=== PATIENT | male | born 1970 | race Hispanic/Latino ===

== ENCOUNTER 2016-11-30 23:14 | Inpatient (IN) | payer SELFPAY ==
[~2016-11-30] VITALS: Ht 170.2 cm; Wt 56.4 kg
[~2016-11-30 23:14] MED LIST: AMLO5TAB2 PO; ATOR10TA66 PO; CEPH-512 PO; FLUO10CA20 PO; GLPZ5T PO; METF500T4 PO; METO25TA6 PO; METR500T PO
[2016-11-30 23:22] VITALS: BP 176/100; PULSE 115; RESP 36; O2SAT 99
[2016-11-30] MEDS ORDERED: Ondansetron 2 mg/mL 2 mL Inj ONE (23:28)
[2016-11-30] MEDS ORDERED: 0.9% Sodium Chloride 1,000 ML IV ONE (23:35)
[2016-11-30] MEDS: Ondansetron 2 mg/mL 2 mL Inj IVPUSH PRN (23:38)
--- NOTE | 2016-11-30 23:41 | ED.REPORT ---
HPI-General Illness Date of Service Nov 30, 2016 ED Provider: Etienne Kaba MD Pt is a 46 year old male with a hx of DM and HTN presenting to the ED complaining of abdominal pain onset yesterday. Associated symptoms include nausea and vomiting today, confusion, and throat pain. Denies diarrhea or any other symptoms at this time. He reports that he does smoke marijuana but denies smoking any today. Nursing Notes Stated Complaint: POSSIBLE HIGH BLOOD SUGAR,VOMITING Chief Complaint: General Complaint Nursing Notes Reviewed: Yes Allergies: Coded Allergies: No Known Allergies (Verified Allergy, Unknown, 09/27/16) Uncoded Allergies: seasonal allergies (Adverse Reaction, Intermediate, itchy, rash, 09/27/16) Scheduled Amlodipine (Amlodipine) 5 Mg Tablet 10 MG PO DAILY Atorvastatin Calcium (Atorvastatin Calcium) 10 Mg Tablet 10 MG PO HS Cephalexin (Keflex) 500 Mg Capsule 500 MG PO BID Fluoxetine (Fluoxetine) 10 Mg Capsule 10 MG PO DAILY Glipizide (Glipizide) 5 Mg Tablet 5 MG PO DAILY Metformin (Metformin) 500 Mg Tablet 500 MG PO DAILY Metformin (Metformin) 500 Mg Tablet 500 MG PO BID Metoprolol Tartrate (Metoprolol Tartrate) 25 Mg Tablet 12.5 MG PO BID Metronidazole (Flagyl) 500 Mg Tablet 500 MG PO Q8H General Time Seen by MD: 23:35 Chief Complaint Abdominal pain Hx Obtained From: Patient Arrived By: Walk-in Sudden in Onset?: No Onset Occurred: Yesterday Symptom Duration: Since onset Location: : Abdomen Quality: Painful Severity: Current: Moderate Severity: Maximum: Severe Recent Healthcare: No recent doctor visit, No recent hospitalization Similar Sx Previous: No Past Medical History Past Medical History Type 2 diabetes - diagnosed in April the emergency department, patient never followed up with his provider. Reports: Depression Past Surgical History none reported Smoking History Current Every Day Smoker Social History Alcohol Use: Denies alcohol use Drug Use: THC Other Social History: Good social support, , Local resident Ambulatory Status Independent Review of Systems Full Review of Systems Ears / Nose / Throat: Reports: Throat pain GI: Reports: Abdominal pain, Nausea, Vomiting, Denies: Diarrhea Neurologic: Reports: Confusion Complete sys rev & neg: except as marked. Physical Exam Vital Signs Vital Signs Date Time Temp Pulse Resp B/P Pulse Ox O2 Delivery O2 Flow Rate FiO2 12/01/16 02:59 81 28 165/65 97 Room Air 12/01/16 01:35 78 27 170/78 98 Room Air 11/30/16 23:22 35.8 115 36 176/100 99 Room Air Initial VS: Reviewed, Vital signs abnormal General/Constitutional: Well-developed, Well-nourished Head / Eyes: Atraumatic, Normocephalic, PERRL ENT: Mucous membranes moist, Conjunctiva normal, No scleral icterus Neck: Supple, Non-tender, Full range of motion Respiratory: Breath sounds normal, Clear to auscultation, No respiratory distress Cardiovascular: Regular rate & rhythm, Heart sounds normal, Intact distal pulses Abdomen / GI: Soft, Non-tender, No guarding, No rebound, No distention Extremities: Vascular intact, Neuro intact, No swelling, No tenderness Skin: Warm, Dry, No cyanosis Neurologic: Alert, Oriented, Nonfocal Psychiatric: Mood/affect normal, Behavior normal, Normal thought content Interpretation & Diagnostics Interpretation & Diagnostics: Urine Tox positive for marijuana Lab Results Interpretation Result Diagram: 11/30/16 2340 11/30/16 2340 Test 11/30/16 23:40 12/01/16 00:59 12/01/16 01:29 White Blood Count 21.0th/mm3 (3.8-10.1) Red Blood Count 6.67mil/mm3 (4.40-5.80) Hemoglobin 19.1g/dL (13.8-17.2) Hematocrit 53.2% (41.0-50.0) Mean Corpuscular Volume 79.8fL (81-100) Mean Corpuscular Hemoglobin 28.6pg (27.0-35.0) Mean Corpuscular Hemoglobin Concent 35.9% (32.0-37.0) Red Cell Distribution Width 13.9% (12.3-15.4) Platelet Count 351bil/L (150-400) Neutrophils (%) (Auto) 83.5% (40-74) Lymphocytes (%) (Auto) 9.2% (14-46) Monocytes (%) (Auto) 6.5% (4-12) Eosinophils (%) (Auto) 0.1% (0-5) Basophils (%) (Auto) 0.2% (0-3) Sodium Level 139mEq/L (134-144) Potassium Level 3.5mEq/L (3.5-5.2) Chloride Level 89mEq/L (97-108) Carbon Dioxide Level 17mmol/L (18-29) Blood Urea Nitrogen 46mg/dL (6-24) Creatinine 2.22mg/dL (0.76-1.27) Estimat Glomerular Filtration Rate 34mL/min (>59) Glucose Level 299mg/dL (60-99) Calcium Level 12.6mg/dL (8.5-10.1) Phosphorus Level 5.4mg/dL (2.5-4.9) Magnesium Level 2.2mg/dL (1.6-2.6) Total Bilirubin 0.5mg/dL (0.0-1.2) Aspartate Amino Transf (AST/SGOT) 24U/L (0-50) Alanine Aminotransferase (ALT/SGPT) 28U/L (0-44) Alkaline Phosphatase 135U/L (25-150) Troponin T 0.010ug/L (0.0-0.011) Total Protein 10.4g/dL (6.4-8.4) Albumin 7.1g/dL (3.4-5.0) Lipase 71U/L (13-60) Procalcitonin 0.21ng/mL (0.00-0.08) Hold Richard Top Tube Received (Received) Hold Urine Received (Received) Urine Color Yellow (YELLOW) Urine Appearance Hazy (CLEAR,HAZY) Urine pH 6.5 (5.0-8.0) Urine Specific [place] 1.019 (1.003-1.035) Urine Protein 100mg/dL (NEG,TRACE) Urine Glucose (UA) 500mg/dL (NEGATIVE) Urine Ketones 80mg/dL (NEGATIVE) Urine Occult Blood Trace (NEGATIVE) Urine Nitrite Negative (NEGATIVE) Urine Bilirubin Negative (NEGATIVE) Urine Urobilinogen Normalmg/dL (NORMAL) Urine Leukocyte Esterase Negative (NEGATIVE) Urine RBC 0-2/hpf (0-2) Urine WBC 0-5/hpf (0-5) Urine Epithelial Cells Occasional/hpf (NONE-MOD) Urine Crystals None seen (NONE SEEN) Urine Bacteria Few/hpf (NONE-FEW) Urine Hyaline Casts Occasional/lpf (NONE) Urine Granular Casts None seen (NONE SEEN) Urine Waxy Casts None seen (NONE SEEN) Urine Red Blood Cell Casts None seen (NONE SEEN) Urine White Blood Cell Casts None seen (NONE SEEN) Urine Mucus Present (None Seen) Urine Trichomonas None seen (NONE SEEN) Urine Yeast None (NONE SEEN) Urinalysis Comment None Urine Culture Reflexed Not indicated Lab Results Interpretation: Elevated white blood count, elevated blood sugar, elevated BUN/creatinine X-Ray Chest Interpretation Chest Xray Interpretation: Normal. View: Portable, 1 view Interpretation / Wet Read by: Wet read ED physician CT Head Interpretation CONCLUSION: No acute intracranial findings. This report was transmitted to the emergency room at 12/01/2016 - 2:51:06 AM PDT. Study: Head CT no contrast Interpretation / Wet Read by: Interpret - Radiologist CT Abd / Pelvis Interpretation CONCLUSION: 1. Negative for obstructive uropathy. 2. Normal appendix. No free air, bowel obstruction, or mesenteric inflammation. This report was transmitted to the emergency room at 12/01/2016 - 3:04:30 AM PDT Study type: Abdominal CT no contrast Interpretation / Wet Read by: Interpret - Radiologist Re-Eval/Medical Decision Med Decision/Clinical Course 46-year-old male with diabetes presents with fever and vomiting and mild confusion. He is a daily marijuana smoker, and it is unclear whether cannabis hyperemesis is a consideration here. He does have evidence of sepsis with elevated white blood count, elevated lactic acid, but no source is found. CT scan of the head done because of confusion was normal. CT scan of the abdomen done without contrast does not reveal any source of his current symptoms. He will be admitted to the hospitalist service for further evaluation and treatment. Please see inpatient chart for details. Time of Eval: 03:00 Patient Status: Condition improved Re-Evaluation/Progress Note: Discussed plan for admission. Pt understands and agrees. Consultation : Referral / Consult Name: Gonzlao Pinedo MD Consulted With: Hospitalist Call Returned at: 03:52 Development Professional: Will see patient, Agrees with plan, Accepts admit Counseled Regarding: Diagnosis, Lab results, Need for admission Discharge & Departure Primary Impression: Sepsis Sepsis type: sepsis due to unspecified organism Qualified Code: A41.9 - Sepsis, unspecified organism Disposition: ADMITTED TO HOSPITAL Discharge Condition All VS Reviewed: Yes Condition: Improved Referrals: [facility] Scribe Attestation Portions of this note were transcribed by Marie Nunes. IDr. Kaba personally performed the history, physical exam and medical decision-making; I reviewed and confirmed the accuracy of the information in the transcribed note. Signed by: Mayo Mckenzie, 11/30/2016 at 0355. copies to: [facility] Etienne Kaba MD Nov 30, 2016 23:41 MARIE NUNES Nov 30, 2016 23:42
[2016-11-30 23:54] LABS: Mean Corpuscular Hemoglobin 28.6 pg (27.0-35.0); Mean Corpuscular Volume 79.8 fL (81-100)
[2016-11-30 23:55] LABS: BASOPHILS % (AUTO) 0.2 % (0-3); EOSINOPHILS % (AUTO) 0.1 % (0-5); MONOCYTES % (AUTO) 6.5 % (4-12); NEUTROPHILS % (AUTO) 83.5 % (40-74); Platelet Count 351 bil/L (150-400)
[2016-12-01] VITALS (13 sets, daily range): BP systolic 130–178; BP diastolic 54–78; PULSE 63–81; RESP 16–28; O2SAT 95–98
[2016-12-01] MEDS: Ondansetron 2 mg/mL 2 mL Inj IVPUSH PRN (00:20)
[2016-12-01 00:28] LABS: Magnesium 2.2 mg/dL (1.6-2.6)
[2016-12-01] MEDS ORDERED: 0.9% Sodium Chloride 1,000 ML IV ONE (00:30)
[2016-12-01 02:01] LABS: APPEARANCE,URINE HAZY (CLEAR,HAZY); COLOR,URINE YELLOW (YELLOW); OCCULT BLOOD,URINE TRACE (NEGATIVE); PH,URINE 6.5 (5.0-8.0); UROBILINOGEN,URINE NORMAL (NORMAL)
[2016-12-01] MEDS ORDERED: ProchlorPERazine 5 mg/mL 2 mL Inj IVPUSH ONE (02:15)
[2016-12-01] MEDS ORDERED: Pantoprazole 4 mg/mL 10 mL Inj IVPUSH ONE (03:25)
[2016-12-01] MEDS ORDERED: 0.9% Sodium Chloride 1,000 ML IV SCH (03:56)
[2016-12-01] MEDS ORDERED: Ondansetron 2 mg/mL 2 mL Inj IVPUSH PRN (04:00)
[2016-12-01] MEDS ORDERED: Glucose 40% Oral Gel 15 Gm Tube PO PRN (04:00)
[2016-12-01] MEDS ORDERED: Alum-Mag Hydrox-Simeth 30 mL Suspension PO PRN (04:00)
[2016-12-01] MEDS ORDERED: Polyethylene Glycol (PEG) 17 Gm Powder PO PRN (04:00)
[2016-12-01] MEDS ORDERED: Piperacillin-Tazo 3.375 Gm Inj 3.375 GM in Dextrose 5% Minibag Plus 50 ML IV ONE (04:05)
--- NOTE | 2016-12-01 04:38 | PCM.HPMED ---
Subjective Date of Service Dec 01, 2016 Primary Provider: Admitting Physician: Gonzalo Pinedo MD Primary Care Physician: Nopcp Attending Physician: Gonzalo Pinedo MD Admit Status: From the Emergency Department, Full Admit, [facility] Telemetry Chief Complaint: Abdominal pain History of Present Illness: Simone Sal is a 46 year old male with Diabetes and Hypertension presenting to [facility] emergency department complaining of abdominal pain onset yesterday. Pain started yesterday after eating breakfast. Located in the epigastric region , sharp without any radiation, 7/10 intensity. Associated symptoms include nausea and vomiting with throat pain. Denies diarrhea or fever or chills. He reports that he does smoke marijuana but denies smoking any today. He is diabetic and Hypertension but does not recall his medication list. Patient diagnosed with Diabetes last year Case discussed with Dr Kaba, source of infection unclear with Urine and chest x ray unremarkable. Labs and vitals consistent with Sepsis and CT scan showed no source but was done without any contrast. Review of Systems: Pertinent positives as noted in HPI. All other systems were reviewed and are negative Allergies Coded Allergies: No Known Allergies (Verified Allergy, Unknown, 09/27/16) Uncoded Allergies: seasonal allergies (Adverse Reaction, Intermediate, itchy, rash, 09/27/16) Home Medications Patient cannot recall medication list. Needs to be consolidated PMH Diabetes type 2 Hypertension Nicotine dependence . Surgical History None reported Family History Father of head and neck cancer at age 65. Mother of diabetic complications at age 66. Social History Hx Alcohol Use: No Hx Substance Use: Yes (marijuana 3x/week) Hx Tobacco Use: Yes Smoking Status: Current Every Day Smoker Living Arrangement: with Family Exam Vital Signs Vital Sign - Last Date Time Temp Pulse Resp B/P Pulse Ox O2 Delivery O2 Flow Rate FiO2 12/01/16 02:59 81 28 165/65 97 Room Air 11/30/16 23:22 35.8 Exam General: Alert, Oriented X3, Cooperative, No acute Distress Eyes: PERRLA, Scleral Anicteric Mouth: Mouth Normal, Mucous Membranes dry Neck: Supple, no Thyromegaly, trachea central. Chest & Lungs: Clear to auscultation & percussion, No adventitious breath sounds, no crackles, no wheeze Cardiovascular: Normal S1, Normal S2, No Murmurs/Rubs/Gallops, Regular Rate/ Rhythm (No JVD, no peripheral edema) Pulses: Radial (present and equal), Dorsalis Pedi (present and equal) Abdomen: Soft, Non-tender, Non-distended, Normoactive bowel tones. Musculoskeletal: Unremarkable. Normal range of motion, no swollen or erythematous joints Extremities: No edema, no cyanosis, no clubbing. Skin: No rashes. Warm and dry, no erythematous areas Neurological: Grossly neurologically intact, Normal Speech, Sensation Intact Lymphatic: Lymph nodes Cervical and Axillary not palpable. Lab and Diagnostics Labs Laboratory Tests Test 11/30/16 23:40 12/01/16 00:59 12/01/16 01:29 White Blood Count 21.0th/mm3 (3.8-10.1) Red Blood Count 6.67mil/mm3 (4.40-5.80) Hemoglobin 19.1g/dL (13.8-17.2) Hematocrit 53.2% (41.0-50.0) Mean Corpuscular Volume 79.8fL (81-100) Mean Corpuscular Hemoglobin 28.6pg (27.0-35.0) Mean Corpuscular Hemoglobin Concent 35.9% (32.0-37.0) Red Cell Distribution Width 13.9% (12.3-15.4) Platelet Count 351bil/L (150-400) Neutrophils (%) (Auto) 83.5% (40-74) Lymphocytes (%) (Auto) 9.2% (14-46) Monocytes (%) (Auto) 6.5% (4-12) Eosinophils (%) (Auto) 0.1% (0-5) Basophils (%) (Auto) 0.2% (0-3) Sodium Level 139mEq/L (134-144) Potassium Level 3.5mEq/L (3.5-5.2) Chloride Level 89mEq/L (97-108) Carbon Dioxide Level 17mmol/L (18-29) Blood Urea Nitrogen 46mg/dL (6-24) Creatinine 2.22mg/dL (0.76-1.27) Estimat Glomerular Filtration Rate 34mL/min (>59) Glucose Level 299mg/dL (60-99) Lactic Acid Level 4.0mmol/L (0.4-2.0) Calcium Level 12.6mg/dL (8.5-10.1) Magnesium Level 2.2mg/dL (1.6-2.6) Total Bilirubin 0.5mg/dL (0.0-1.2) Aspartate Amino Transf (AST/SGOT) 24U/L (0-50) Alanine Aminotransferase (ALT/SGPT) 28U/L (0-44) Alkaline Phosphatase 135U/L (25-150) Total Protein 10.4g/dL (6.4-8.4) Albumin 7.1g/dL (3.4-5.0) Lipase 71U/L (13-60) Hold Richard Top Tube Received (Received) Hold Urine Received (Received) Urine Color Yellow (YELLOW) Urine Appearance Hazy (CLEAR,HAZY) Urine pH 6.5 (5.0-8.0) Urine Specific [place] 1.019 (1.003-1.035) Urine Protein 100mg/dL (NEG,TRACE) Urine Glucose (UA) 500mg/dL (NEGATIVE) Urine Ketones 80mg/dL (NEGATIVE) Urine Occult Blood Trace (NEGATIVE) Urine Nitrite Negative (NEGATIVE) Urine Bilirubin Negative (NEGATIVE) Urine Urobilinogen Normalmg/dL (NORMAL) Urine Leukocyte Esterase Negative (NEGATIVE) Urine RBC 0-2/hpf (0-2) Urine WBC 0-5/hpf (0-5) Urine Epithelial Cells Occasional/hpf (NONE-MOD) Urine Crystals None seen (NONE SEEN) Urine Bacteria Few/hpf (NONE-FEW) Urine Hyaline Casts Occasional/lpf (NONE) Urine Granular Casts None seen (NONE SEEN) Urine Waxy Casts None seen (NONE SEEN) Urine Red Blood Cell Casts None seen (NONE SEEN) Urine White Blood Cell Casts None seen (NONE SEEN) Urine Mucus Present (None Seen) Urine Trichomonas None seen (NONE SEEN) Urine Yeast None (NONE SEEN) Urinalysis Comment None Urine Culture Reflexed Not indicated Microbiology 12/01/16 Blood Culture, Received Pending Result Diagram: 11/30/16 [id number] Assessment & Plan Simone Sal is a 46 year old male with Diabetes and Hypertension presenting to [facility] emergency department complaining of abdominal pain 1. Severe Sepsis. Present on admission Meeting criteria with SIRS with leukocytosis, tachycardia and tachypnea. Source of infection suspected to be intraabdominal with abdominal pain as well as some nausea and vomiting. - monitor in PCC - early initiation of broad spectrum antibiotics, Zosyn IV initiated - continue fluid resuscitations according to sepsis protocol - consider Infection disease consult if available 2 Lactic acidosis with gap metabolic acidosis. Present on admission Due to tissue hypoxia and sepsis. Gap acidosis may suggest DKA but patient does not have full clinical picture - trending levels till normal - continue fluids resuscitations 3 Acute Kidney Injury. Present on admission Likely pre renal azotemia due to hypovolemia with GI loss - avoid nephrotoxic insults - continue fluids 4 Hypercalcemia, Acute. Present on admission Likely reflecting hypovolemia and dehydration - monitor levels while on fluids 5 Diabetes type 2, chronic Presumed poor control - high correction Lispro insulin algorithm - checking A1c - Inpatient Diabetes education consult 6 Nicotine dependence Cessation discussed and encouraged - Nicotine patch on request - Acetaminophen as needed for mild pain/fever/headache - Bowel regimen as needed - Antiemetic as needed Patient admitted under inpatient status with expected length of stay > 2 midnights for severity of present symptoms, complexities of treatment plan and risk for adverse event . VTE Prophylaxis: Sub-Q Heparin (Unfractionated) Resuscitation Status: CPR: Attempt Resuscitation Gonzalo Pinedo MD Dec 01, 2016 04:30
[2016-12-01 04:56] LABS: TROPONIN T 0.01 ug/L (0.0-0.011)
[2016-12-01] MEDS: Lactated Ringer's 1,000 ML IV SCH ×3 (05:02→21:00)
[2016-12-01 05:05] LABS: Phosphorus 5.4 mg/dL (2.5-4.9)
[2016-12-01] MEDS: Insulin LISPRO 300 Unit/3 mL Inj SUBQ SCH ×4 (05:27→21:00)
--- NOTE | 2016-12-01 05:53 | NUR ---
Admit Patient admitted to room 2019. Patient able to stand up and walk from ER [place] to floor bed without any difficulty. Denies shortness of breath or dizziness; he is steady on his feet. Patient oriented to room and call light. Requesting water and MD okayed ice chips. Denies n/v or abdominal pain at this time. BG 321 and 0800 insulin dose is administered early per MD bedside order. Special Education Teaching Assistant used for admission history but patient does respond to all of the questions in [place] Islander. Denies further questions to manager therapy. Does request that consent forms and education be given in Martiniquais. Patient and unable to give med list at this time; patient knows he 'takes 6 medications'. Plan of care for the night discussed with patient.
--- NOTE | 2016-12-01 08:26 | DRSVH ---
PROCEDURE: X-RAY CHEST ONE VIEW, PORTABLE ([id number]) INDICATIONS: sepsis TECHNIQUE: One view of the chest was acquired. COMPARISON: [facility], CR, XR CHEST 1VW (PORTABLE), 09/27/2016, 11:20. FINDINGS: Surgical changes and devices: None. Lungs and pleura: No pleural effusions or pneumothorax. Lungs are clear. Mediastinum: Mediastinal contours appear normal. Heart size is normal. Bones and chest wall: No suspicious bony lesions. Overlying soft tissues appear unremarkable. IMPRESSION: 1. No acute cardiopulmonary disease. Dictated by: Mulugeta Castellano M.D. on 12/01/2016 at 8:24 Approved by: Mulugeta Castellano M.D. on 12/01/2016 at 8:24
[2016-12-01] MEDS: Sodium Chloride LOK Flush 10 mL Syringe IVFLUSH SCH ×3 (08:30→23:13)
--- NOTE | 2016-12-01 08:37 | DRSVH ---
PROCEDURE: CT ABDOMEN AND PELVIS WITHOUT CONTRAST ([id number]) INDICATIONS: abd pain, sepsis, vomited blood TECHNIQUE: Noncontrast 5 mm thick sections acquired from the diaphragms to the symphysis. 5 mm coronal and sagi ttal reformats were then performed. For radiation dose reduction, the following was used: automated exposure control, adjustment of mA and/or kV according to patient size. COMPARISON: CT abdomen and pelvis 09/30/2016; abdomen ultrasound 09/29/2016 FINDINGS: Preliminary report by overnight stocker radiology Image quality: Excellent. ABDOMEN: Lung bases: Lung bases are clear. Heart size is normal. Solid organs: Liver and spleen are normal in size. Gallbladder appears normal. Pancreas is normal in contours. No adrenal nodules. Kidneys are normal in size, without hydronephrosis or nephrolithia sis. Peritoneum and bowel: Unenhanced bowel loops demonstrate normal wall thickness and caliber. No evide nce of appendicitis. No free fluid or air. Nodes and vessels: No retroperitoneal or mesenteric adenopathy by size criteria. Aorta contains a f ew scattered calcified plaques. The inferior vena cava is normal in caliber. Miscellaneous: No ventral hernias. PELVIS: Genitourinary: Bladder is nondistended, wall thickness is normal. Miscellaneous: No inguinal hernias or adenopathy. Bones: No suspicious bony lesions. No vertebral body compression fractures. IMPRESSION: 1. No evidence of bowel obstruction or inflammation. No adenopathy, fluid collection or free air. 2. Exam is limited by absence of intravenous and oral contrast Findings are concordant with the preliminary report. Dictated by: Manolo Pollock M.D. on 12/01/2016 at 8:27 Approved by: Manolo Pollock M.D. on 12/01/2016 at 8:35
--- NOTE | 2016-12-01 08:39 | DRSVH ---
PROCEDURE: CT BRAIN WITHOUT CONTRAST ([id number]) INDICATIONS: confusion, sepsis TECHNIQUE: Noncontrast 4.5 mm thick angled axial sections acquired from the foramen magnum to the vertex, with c oronal reformats. COMPARISON: None. FINDINGS: Preliminary report by wildlife biology technician radiology Image quality: Excellent. CSF spaces: Basal cisterns are patent. No extra-axial fluid collections. Ventricles are normal in size and shape. Brain: No midline shift. No intracranial masses or hemorrhage. Foy-white matter interface is norm al. Skull and face: Calvarium and visualized facial bones are intact, without suspicious lesions. Sinuses: Visualized sinuses and mastoids are clear. IMPRESSION: Normal CT brain scan. Findings are concordant with the preliminary report. Dictated by: Manolo Pollock M.D. on 12/01/2016 at 8:35 Approved by: Manolo Pollock M.D. on 12/01/2016 at 8:36
[2016-12-01] MEDS ORDERED: AMLO10TA3 PO (09:31)
[2016-12-01] MEDS: Heparin 5,000 Unit/mL Inj SUBQ SCH ×3 (10:06→23:13)
[2016-12-01] MEDS ORDERED: 0.9% Sodium Chloride 250 ML ONE (13:39)
[2016-12-01] MEDS: Piperacillin-Tazo 3.375 Gm Inj 3.375 GM in Dextrose 5% Minibag Plus 50 ML IV SCH ×2 (13:41→21:00)
--- NOTE | 2016-12-01 16:56 | PCM.PNMED ---
Subjective Date of Service Dec 01, 2016 Subjective Overnight there were no acute events. Mr. Sal reports feeling better than he did last night, noting that he is no longer nauseated or vomiting. He reports ongoing weight loss but denies any fever/chills, shortness of breath, chest pain, abdominal pain or diarrhea. He was very expressive today, particularly about his depression and how he's lost multiple family members over a short period of time and is starting to feel lonely. Exam Vital Signs Vital Sign - Last Date Time Temp Pulse Resp B/P Pulse Ox O2 Delivery O2 Flow Rate FiO2 12/01/16 16:41 37.0 72 28 152/73 96 Room Air Exam General: Slim male sitting comfortably in bed, Cooperative, No acute Distress HEENT: NCAT. PERRLA, EOMI. Membranes pink and slightly dry Neck: Supple, no Thyromegaly, trachea central. Cardiovascular: RRR without murmur/rub/gallops; Normal S1/S2 Pulm: CTA bilaterally, no wheezing/rales/rhonchi Abdomen: Soft, Non-tender, Non-distended, Normoactive bowel tones. No rebound or guarding. Extremities: No edema, no cyanosis, no clubbing. Skin: No rashes. Warm and dry, no bruising or ulcerations Neurological: A&Ox3. CN 2-12 intact, muscle strength normal without focal deficits Psych: Depressed mood and affect IVs and Medications Medications Reviewed: Medications were reviewed in detail Lab and Diagnostics Result Diagram: 11/30/16 2340 11/30/16 2340 X-Rays, CTs and MRIs Abd CT 12/01 IMPRESSION: 1. No evidence of bowel obstruction or inflammation. No adenopathy, fluid collection or free air. 2. Exam is limited by absence of intravenous and oral contrast Findings are concordant with the preliminary report. Dictated by: Manolo Pollock M.D. on 12/01/2016 at 8:27 Approved by: Manolo Pollock M.D. on 12/01/2016 at 8:[address] 12/01 IMPRESSION: Normal CT brain scan. Findings are concordant with the preliminary report. Dictated by: Manolo Pollock M.D. on 12/01/2016 at 8:35 Approved by: Manolo Pollock M.D. on 12/01/2016 at 8:36 CXR 12/01 IMPRESSION: 1. No acute cardiopulmonary disease. Dictated by: Mulugeta Castellano M.D. on 12/01/2016 at 8:24 Approved by: Mulugeta Castellano M.D. on 12/01/2016 at 8:24 Assessment & Plan Simone Sal is a 46 year old male with Diabetes and Hypertension that presented to [facility] Emergency Department complaining of abdominal pain, nausea and vomiting. Acute Kidney Injury, present on admission. Ongoing. - Likely prerenal azotemia due to hypovolemia from nausea and vomiting - Continue fluids at 125ml/hr - Avoid further nephrotoxic insults Severe Sepsis. Present on admission. Improving. - Met criteria with SIRS with leukocytosis, tachycardia and tachypnea - Source of infection suspected to be intraabdominal due to presentation - Continue Zosyn; refine when cultures return - Fluids as above Lactic acidosis with gap metabolic acidosis. Present on admission. Improving. - Likely due to tissue hypoxia and sepsis, DKA unlikely due to presentation - Lactic Acid on admission was 4.1, has fallen to 1 - Check BMP at night to reassess gap - Fluids as above Hypercalcemia, Acute. Present on admission. Ongoing. - Likely secondary to hypovolemia from nausea and vomiting - Repeat Calcium 12/02 AM Diabetes type 2, chronic. Uncontrolled. - Presumed poor control due to admission BS of >300 with concurrent glycosuria - Patient is only on metformin and a sulfonylurea, does not check sugars as he ran out of strips at home - Diabetic education ordered - High correction Lispro insulin algorithm; consider insulin if blood sugars stay elevated - A1C pending Hypertension, chronic. Stable. - Patient medication was held due to septic presentation - Continue home Amlodipine 10mg daily and Metoprolol 12.5mg BID now that his pressures are stable Depression, chronic. Ongoing. - Patient was tearful throughout our interview and went on about his family situation - Continue home Fluoxetine Nicotine dependence, chronic. Stable. - Cessation encouraged, gave information on options to quit - Nicotine patch PRN - Acetaminophen as needed for mild pain/fever/headache - Bowel regimen as needed - Antiemetic as needed Disposition: Patient will likely be admitted for the next 1-2 days depending on his continued medical improvement, blood glucose control, improving renal function and response to fluid resuscitation. VTE Prophylaxis: Sub-Q Heparin (Unfractionated) Resuscitation Status: CPR: Attempt Resuscitation Attending Statement The patient was seen and examined together with Dr. Swanson on 12/01/2016 and I agree with the history, exam and plan as outlined in the note above. . Marques Swanson DO Dec 01, 2016 16:56 Andrea Malagon MD Dec 03, 2016 07:42
--- NOTE | 2016-12-01 18:02 | NUR ---
Shift summary Pt denies nausea during the shift. No complaints of pain. At this time remains NPO but is tolerating ice chips. IV fluids infusing at 125ml/hr. IV antibiotics started. Vital signs are stable, afebrile. Blood sugars were 180, 124, and 98 this shift. is present at the bedside and assisted patient with a partial bed bath.
[2016-12-01] MEDS ORDERED: Non-Formulary Medication (Amlodipine 10 MG) PO SCH (19:45)
[2016-12-01 20:40] LABS: BASOPHILS % (AUTO) 0.1 % (0-3); EOSINOPHILS % (AUTO) 0.1 % (0-5); Mean Corpuscular Hemoglobin 29.4 pg (27.0-35.0); Mean Corpuscular Volume 80.1 fL (81-100); NEUTROPHILS % (AUTO) 75.3 % (40-74); Platelet Count 223 bil/L (150-400)
[2016-12-02 03:28] VITALS: BP 142/86; PULSE 74; RESP 19; O2SAT 97
[2016-12-02 04:00] VITALS: BP 132/74; PULSE 65; RESP 19; O2SAT 95
[2016-12-02] MEDS: Piperacillin-Tazo 3.375 Gm Inj 3.375 GM in Dextrose 5% Minibag Plus 50 ML IV SCH (04:03)
[2016-12-02] MEDS: Lactated Ringer's 1,000 ML IV SCH ×2 (04:04→11:56)
--- NOTE | 2016-12-02 05:53 | NUR ---
Tele / No Pain / No N&V No c/o chest pain, Tele SR 60s. No c/o abdomen pain. Diet increased to Clear liquids and Pt tolerated Jello and ice water during the night, w/o nausea. Vital signs stable and afebrile. IV LR and IV antibiotics infused per MD orders. Pt slept well overnight. in room all night.
[2016-12-02 06:08] LABS: BASOPHILS % (AUTO) 0.2 % (0-3); EOSINOPHILS % (AUTO) 0.8 % (0-5); MONOCYTES % (AUTO) 13.6 % (4-12); Mean Corpuscular Hemoglobin 28.7 pg (27.0-35.0); NEUTROPHILS % (AUTO) 66.2 % (40-74); Platelet Count 203 bil/L (150-400)
[2016-12-02 07:44] VITALS: BP 136/79; PULSE 54; RESP 16; O2SAT 96
[2016-12-02] MEDS: Insulin LISPRO 300 Unit/3 mL Inj SUBQ SCH ×2 (08:00→12:00)
[2016-12-02] MEDS: Sodium Chloride LOK Flush 10 mL Syringe IVFLUSH SCH (08:14)
[2016-12-02] MEDS: Heparin 5,000 Unit/mL Inj SUBQ SCH (08:24)
[2016-12-02 10:55] VITALS: PULSE 54
[2016-12-02] MEDS ORDERED: FLUO10CA20 PO (11:17)
--- NOTE | 2016-12-02 11:21 | PCM.DIMED ---
Marques Swanson DO 12/02/16 1121: Discharge Instructions Date of Service Dec 02, 2016 Dates of Hospitalization Dec 01, 2016 at 04:22 Discharge Diagnosis Discharge Diagnosis Acute Kidney Injury Severe Sepsis Lactic acidosis with gap metabolic acidosis Hypercalcemia Diabetes type 2 Hypertension Depression Nicotine dependence Diet Discharge Diet: Diabetic Activity Discharge Activity: No restrictions Call your provider Call your provider for: Fever or Chills, Shortness of breath, Vomitting, Excessive diarrhea Patient Instructions Patient Instructions Your antidepressant (Fluoxetine) has been increased to 20mg from 10mg. Please continue to take it at night before you sleep. You have a follow up with Dr. Kelly on 01/01 at 1:45pm for further evaluation of your blood glucose and antidepressant changes. I want you to follow up in the Residency clinic here at [facility] sooner with your morning and nightly blood glucose measurements so we can adjust your medications accordingly before seeing Dr. Kelly. Follow-up Provider: [facility] Residency Clinic Follow-up with PCP in: 2 weeks (1-2 weeks if possible) Andrea Malagon MD 12/03/16 0744: Discharge Instructions Attending's Statement The patient was seen and examined together with Dr. Swanson on 12/02/2016 and I agree with the history, exam and plan as outlined in the note above. . Marques Swanson DO Dec 02, 2016 11:21 Andrea Malagon MD Dec 03, 2016 07:44
--- NOTE | 2016-12-02 11:54 | PCM.DC.MED ---
Discharge Summary Date of Service Dec 02, 2016 Dates of Hospitalization Date of Hospital Admission Dec 01, 2016 at 04:22 Date of Discharge: Dec 02, 2016 Providers: Admitting Physician: Gonzalo Pinedo MD Primary Care Physician: Nopsaul Attending Physician: Andrea Malagon MD Diagnosis at Time of Discharge Diagnosis at Time of Discharge Acute Kidney Injury Severe Sepsis Lactic acidosis with gap metabolic acidosis Hypercalcemia Diabetes type 2 Hypertension Depression Nicotine dependence Procedures XRay, CTs & MRIs Abd CT 12/01 IMPRESSION: 1. No evidence of bowel obstruction or inflammation. No adenopathy, fluid collection or free air. 2. Exam is limited by absence of intravenous and oral contrast Findings are concordant with the preliminary report. Dictated by: Manolo Pollock M.D. on 12/01/2016 at 8:27 Approved by: Manolo Pollock M.D. on 12/01/2016 at 8:[address] 12/01 IMPRESSION: Normal CT brain scan. Findings are concordant with the preliminary report. Dictated by: Manolo Pollock M.D. on 12/01/2016 at 8:35 Approved by: Manolo Pollock M.D. on 12/01/2016 at 8:36 CXR 12/01 IMPRESSION: 1. No acute cardiopulmonary disease. Dictated by: Mulugeta Castellano M.D. on 12/01/2016 at 8:24 Approved by: Mulugeta Castellano M.D. on 12/01/2016 at 8:24 Brief History Simone Sal is a 46 year old male with Diabetes and Hypertension presenting to [facility] emergency department complaining of abdominal pain, nausea , and vomiting with onset 11/30. He was fluid resuscitated and antibiotics were started due to his septic presentation (tachycardia, tachypnea, falling BP, leukocytosis). He also had a drastic reduction in his kidney function on admission (JARED, Cr 2.22). He vastly improved with fluid resuscitation, his WBC fell to within normal limits and his kidney function has returned to normal. He is now able to eat and does not feel nauseated. Hospital Course Simone Sal is a 46 year old male with Diabetes and Hypertension that presented to [facility] Emergency Department complaining of abdominal pain, nausea and vomiting on 11/30. Diabetes type 2, chronic. Ongoing. - Presumed poor control due to admission BS of >300 with concurrent glycosuria - A1C 7.2 - Blood sugars fell but he also did not eat his normal diet - Advised patient to take sugars in AM and before bed, write it down prior to appointment in Residency clinic - He will follow up with [facility] Residency clinic within the next [address] Kelly on 01/01 Acute Kidney Injury, present on admission. Resolved. - Likely prerenal azotemia due to hypovolemia from nausea and vomiting - Creatinine 2.22 on admission, fell to normal 0.66 Severe Sepsis. Present on admission. Resolved. - Met criteria with SIRS with leukocytosis, tachycardia and tachypnea - Infectious markers unremarkable (Blood cultures negative, WBC normal), no need for antibiotics as outpatient Lactic acidosis with gap metabolic acidosis. Present on admission. Resolved. - Likely due to tissue hypoxia and sepsis, - Lactic acid fell to normal with fluid resuscitation Hypercalcemia, Acute. Present on admission. Resolved. - Likely secondary to hypovolemia from nausea and vomiting - Calcium returned to normal with fluid resuscitation Hypertension, chronic. Stable. - Continue home Amlodipine 10mg daily and Metoprolol 12.5mg BID Depression, chronic. Ongoing. - Patient was tearful throughout our interview and went on about his family situation - Increased his Fluoxetine to 20mg from 10mg daily. He will follow up in the Residency clinic for reassessment - Follow up with Dr. Kelly on 01/01 for more resources or medication adjustments Nicotine dependence, chronic. Stable. - Cessation encouraged, gave information on options to quit Disposition: Patient was discharged in stable and improved condition. He and his expressed understanding on the outpatient treatment plan and under what conditions he is to return to the hospital. Exam Vital Signs (Last) Date Time Temp Pulse Resp B/P Pulse Ox O2 Delivery O2 Flow Rate FiO2 12/02/16 10:55 54 12/02/16 07:44 36.9 16 136/79 96 12/02/16 04:00 Room Air Exam General: Slim male sitting comfortably in bed, Cooperative, No acute Distress HEENT: NCAT. PERRLA, EOMI. Membranes pink and slightly dry Neck: Supple, no Thyromegaly, trachea central. Cardiovascular: RRR without murmur/rub/gallops; Normal S1/S2 Pulm: CTA bilaterally, no wheezing/rales/rhonchi Abdomen: Soft, Non-tender, Non-distended, Normoactive bowel tones. No rebound or guarding. Extremities: No edema, no cyanosis, no clubbing. Skin: No rashes. Warm and dry, no bruising or ulcerations Neurological: A&Ox3. CN 2-12 intact, muscle strength normal without focal deficits Psych: Depressed mood and affect Test 11/30/16 23:40 12/01/16 00:59 12/01/16 01:29 12/01/16 08:30 Hemoglobin A1c 7.2% (4.8-5.6) Phosphorus Level 5.4mg/dL (2.5-4.9) Magnesium Level 2.2mg/dL (1.6-2.6) Troponin T 0.010ug/L (0.0-0.011) Lipase 71U/L (13-60) Procalcitonin 0.21ng/mL (0.00-0.08) Hold Richard Top Tube Received (Received) Hold Urine Received (Received) Urine Color Yellow (YELLOW) Urine Appearance Hazy (CLEAR,HAZY) Urine pH 6.5 (5.0-8.0) Urine Specific [place] 1.019 (1.003-1.035) Urine Protein 100mg/dL (NEG,TRACE) Urine Glucose (UA) 500mg/dL (NEGATIVE) Urine Ketones 80mg/dL (NEGATIVE) Urine Occult Blood Trace (NEGATIVE) Urine Nitrite Negative (NEGATIVE) Urine Bilirubin Negative (NEGATIVE) Urine Urobilinogen Normalmg/dL (NORMAL) Urine Leukocyte Esterase Negative (NEGATIVE) Urine RBC 0-2/hpf (0-2) Urine WBC 0-5/hpf (0-5) Urine Epithelial Cells Occasional/hpf (NONE-MOD) Urine Crystals None seen (NONE SEEN) Urine Bacteria Few/hpf (NONE-FEW) Urine Hyaline Casts Occasional/lpf (NONE) Urine Granular Casts None seen (NONE SEEN) Urine Waxy Casts None seen (NONE SEEN) Urine Red Blood Cell Casts None seen (NONE SEEN) Urine White Blood Cell Casts None seen (NONE SEEN) Urine Mucus Present (None Seen) Urine Trichomonas None seen (NONE SEEN) Urine Yeast None (NONE SEEN) Urinalysis Comment None Urine Culture Reflexed Not indicated Lactic Acid Level 1.0mmol/L (0.4-2.0) Test 12/01/16 12:00 12/01/16 15:20 12/02/16 05:35 Thyroid Stimulating Hormone (TSH) 2.360uIU/mL (0.450-4.500) HIV (1&2) Ag and Ab, 4th Generation Non reactive (Non Reactive) White Blood Count 6.5th/mm3 (3.8-10.1) Red Blood Count 4.78mil/mm3 (4.40-5.80) Hemoglobin 13.7g/dL (13.8-17.2) Hematocrit 39.2% (41.0-50.0) Mean Corpuscular Volume 82.0fL (81-100) Mean Corpuscular Hemoglobin 28.7pg (27.0-35.0) Mean Corpuscular Hemoglobin Concent 34.9% (32.0-37.0) Red Cell Distribution Width 14.0% (12.3-15.4) Platelet Count 203bil/L (150-400) Neutrophils (%) (Auto) 66.2% (40-74) Lymphocytes (%) (Auto) 19.0% (14-46) Monocytes (%) (Auto) 13.6% (4-12) Eosinophils (%) (Auto) 0.8% (0-5) Basophils (%) (Auto) 0.2% (0-3) Sodium Level 143mEq/L (134-144) Potassium Level 4.1mEq/L (3.5-5.2) Chloride Level 104mEq/L (97-108) Carbon Dioxide Level 24mmol/L (18-29) Blood Urea Nitrogen 18mg/dL (6-24) Creatinine 0.74mg/dL (0.76-1.27) Estimat Glomerular Filtration Rate 122mL/min (>59) Glucose Level 110mg/dL (60-99) Calcium Level 9.7mg/dL (8.5-10.1) Total Bilirubin 0.4mg/dL (0.0-1.2) Aspartate Amino Transf (AST/SGOT) 17U/L (0-50) Alanine Aminotransferase (ALT/SGPT) 14U/L (0-44) Alkaline Phosphatase 75U/L (25-150) Total Protein 6.4g/dL (6.4-8.4) Albumin 4.4g/dL (3.4-5.0) Discharge Medications Discharge Medications Amlodipine (Amlodipine) 10 Mg Tablet 10 MG PO DAILY (Reported) Atorvastatin Calcium (Atorvastatin Calcium) 10 Mg Tablet 10 MG PO HS Prescribed by: KADIE VILLARREAL DO Fluoxetine (Fluoxetine) 10 Mg Capsule 20 MG PO DAILY Prescribed by: WALLACE SWANSON DO Glipizide (Glipizide) 5 Mg Tablet 5 MG PO DAILY Prescribed by: KADIE VILLARREAL DO Metformin (Metformin) 500 Mg Tablet 500 MG PO BID Prescribed by: KADIE VILLARREAL DO Metoprolol Tartrate (Metoprolol Tartrate) 25 Mg Tablet 12.5 MG PO BID Prescribed by: KADIE VILLARREAL DO Followup Plan Discharge Diet: Diabetic Discharge Activity: No restrictions Patient Instructions Your antidepressant (Fluoxetine) has been increased to 20mg from 10mg. Please continue to take it at night before you sleep. You have a follow up with Dr. Kelly on 01/01 at 1:45pm for further evaluation of your blood glucose and antidepressant changes. I want you to follow up in the Residency clinic here at [facility] sooner with your morning and nightly blood glucose measurements so we can adjust your medications accordingly before seeing Dr. Kelly. Follow-up Provider: [facility] Residency Clinic Follow-up with PCP in: 2 weeks (1-2 weeks if possible) Time spent Greater than 30 minutes was spent in preparation of discharge with greater than 50% of that time dedicated to patient counseling and coordination of care. . Attending Statement The patient was seen and examined together with Dr. Swanson on 12/02/2016 and I agree with the history, exam and plan as outlined in the note above. . copies to: [facility] Residency Clinic; Ana Kelly MD, Jeffery S DO Dec 02, 2016 11:49 Andrea Malagon MD Dec 03, 2016 07:46
--- NOTE | 2016-12-02 13:04 | NUR ---
Discharge Pt discharged at 1300. He was given discharge instructions and he confirmed understanding of these instructions. He was given instructions for follow up care. He was given medication education. He was given 2 prescriptions to take with him. His was present at the bedside. They reported they had no questions. He left by wheelchair brought by unit staff to the exit where his would be driving him home.
--- NOTE | 2016-12-02 13:19 | NUR ---
spiritual care: kimberli Had a pleasant visit with pt and his . Spoke of lou and healing. Blessed them before leaving the room.
--- NOTE | 2016-12-02 13:47 | NUR ---
Social Work Note: Basic Assessment/Multidisciplinary Rounds/Discharge Data& Assessment: EMR reviewed. Pt was discussed in AM rounds today, per pt is medically ready to discharge home via POV. Simone Sal is a 46 year old male admitted on 12/01/2016 for vomiting and sepsis. Per pt is medically improved and ready to discharge home via POV. SURJIT met with pt and pt family at bedside with the assistance of the video stick translator and interpreter. Pt lives in [place] with his family and is independent at baseline. Pt does not have insurance coverage and goes to [facility] with Dr. Kelly for primary care. Per MD order, SURJIT investigated pt ability to have outpt counseling through [facility] as pt has had recent losses in his life and MD feels pt could use some extra support on an outpt basis. SW contacted [facility], per [facility] SW is unable to make an outpt behavior health apt for pt and the referral must come from Dr. Kelly, internally. SURJIT scheduled a follow up PCP appointment for January 01 at 1:45p.m. (The soonest opening for pt PCP). Pt and pt agreeable to this appointment and is agreeable to a suggestion of having extra support in the community and follow up with a counselor through [facility]. [facility] employee did make note of this during appointment scheduling. Pt is on a cancelation list for [facility] but would like pt to be seen sooner in the residency clinic for his hyperglycemia, UA scheduled a one week follow up apt per . denies any other needs or SW orders. also provided pt and pt family with a financial data analyst application. Pt and pt family denies any other needs. Pt is independent at baseline and independent with self care during this hospitalization. No other needs identified. All updated and agreeable to plan. Plan: Per pt is medically ready to discharge home via POV with a one week follow up appointment at the residency clinic and PCP appointment with Dr. Kelly on at 1:45p.m. MD denies any other needs or SW orders. Pt and pt family denies any other needs. No other needs identified. All updated and agreeable to plan. NIKIA Chavez
== END 2016-12-02 13:20 | disposition home or self-care (01) | DRG 683 ==
LOC: SED 23:14 → PCC 12-01 04:22
PROVIDERS: ADMIT Hospitalist; ATTEND Internal Medicine
DX: N17.9 Acute kidney failure, unspecified (principal); E87.2 Acidosis; E11.65 Type 2 diabetes mellitus with hyperglycemia; R11.2 Nausea with vomiting, unspecified; I10 Essential (primary) hypertension; F17.200 Nicotine dependence, unspecified, uncomplicated; F12.90 Cannabis use, unspecified, uncomplicated; F32.9 Major depressive disorder, single episode, unspecified; R50.9 Fever, unspecified; E86.0 Dehydration; E83.52 Hypercalcemia; Z79.84 Long term (current) use of oral hypoglycemic drugs